=== PATIENT | female | born 1960 | race Caucasian/White ===

== ENCOUNTER 2017-06-18 12:18 | Emergency (ER) | payer OTHER, BC ==
[~2017-06-18] VITALS: Ht 167.6 cm; Wt 113.5 kg
[2017-06-18 12:20] VITALS: BP 147/80; PULSE 109; RESP 20; TEMP 99.6; O2SAT 98
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
[2017-06-18] MEDS ORDERED: VENL100T PO (14:17)
[2017-06-18] MEDS ORDERED: ACETAMINOPHEN/HYDROcodone 325 MG/7.5 MG TAB PO ONE (15:00)
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
[2017-06-18 16:01] VITALS: RESP 16
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
[2017-06-18] MEDS ORDERED: ROBA500T PO (16:15)
[2017-06-18] MEDS ORDERED: IBUP1TAB7 PO (16:15)
[2017-06-18] MEDS ORDERED: NORC5TAB PO (16:15)
[2017-06-18 16:26] VITALS: BP 130/83; TEMP 97.7
== END 2017-06-18 16:26 | disposition home or self-care (01) ==
LOC: NEPD 12:18
DX: S16.1XXA Strain of muscle, fascia and tendon at neck level, initial encounter (principal); S39.012A Strain of muscle, fascia and tendon of lower back, initial encounter; S00.83XA Contusion of other part of head, initial encounter; S50.11XA Contusion of right forearm, initial encounter; S51.812A Laceration without foreign body of left forearm, initial encounter; S80.11XA Contusion of right lower leg, initial encounter; S70.12XA Contusion of left thigh, initial encounter; R51 Headache; V49.40XA Driver injured in collision with unspecified motor vehicles in traffic accident, initial encounter
CPT/HCPCS: 70450; 72100; 72125; 73090; 73130; 73590; 99284; L0150